=== PATIENT | male | born 1970 | race African-American/Black ===

== ENCOUNTER 2020-08-06 20:49 | Emergency (ER) | payer OTHER ==
[2020-08-06 21:11] VITALS: BMI 27.1
[2020-08-06] MEDS ORDERED: ACETAMINOPHEN 500 MG TABLET (FP) PO ONE (23:02)
[2020-08-06] MEDS ORDERED: ACETAMINOPHEN 325 MG TABLET (FP) ONE (23:11)
[2020-08-06 23:27] LABS: BASO % 0.7 % (0-2.0); EOS % 1.7 % (0-4.5); HEMATOCRIT 42.2 % (35.4-49); HEMOGLOBIN 14.4 GM/dL (11.7-16.9); LYMPH % 19.5 % (8-40); MCH 32.2 pg (25.7-33.7); MCHC 34.1 g/dl (32.0-35.9); MEAN CELL VOLUME 94.4 fl (80-96); MEAN PLT VOLUME 9.3 fl (7.5-11.1); MONO % 8.3 % (3.8-10.2); NEUT % 69.8 % (42.8-82.8); PLATELET COUNT 193 K/MM3 (134-434); RBC 4.47 M/mm3 (4.00-5.60); RDW 13.4 % (11.9-15.9); WHITE BLOOD COUNT 5.5 K/mm3 (4.0-10.0)
[2020-08-06 23:34] LABS: INR 1.01 (0.83-1.09); PROTHROMBIN TIME (PATIENT) 12.2 SEC (9.7-13.0)
[2020-08-06 23:41] LABS: CHLORIDE 108 mmol/L (98-107); SODIUM 140 mmol/L (136-145)
[2020-08-06 23:42] LABS: CALCIUM 9.7 mg/dL (8.5-10.1)
[2020-08-06 23:43] LABS: ALBUMIN 3.8 g/dl (3.4-5.0); ANION GAP 4 MMOL/L (8-16); BLOOD UREA NITROGEN 18.8 mg/dL (7-18); CO2 28 mmol/L (21-32); GLUCOSE,RANDOM 95 mg/dL (74-106)
[2020-08-06 23:46] LABS: CREATININE 1.6 mg/dL (0.55-1.3); SGOT/AST 20 U/L (15-37); SGPT/ALT 29 U/L (13-61)
[2020-08-06 23:48] LABS: BILIRUBIN,TOTAL 0.5 mg/dL (0.2-1); TOT PROT 7.4 g/dl (6.4-8.2)
[2020-08-06 23:49] LABS: ALK PHOS 75 U/L (45-117)
[2020-08-06] MEDS ORDERED: METHOCARBAMOL 500 MG TABLET PO ONE (23:50)
[2020-08-06] MEDS ORDERED: SODIUM CHLORIDE 0.9% 500 ML INFUS.BAG IV ONE (23:53)
[2020-08-06] MEDS ORDERED: DEXAMETHASONE LIQUID 0.5 MG/5 ML PO ONE (23:56)
[2020-08-07] MEDS ORDERED: DEXAMETHASONE SOD PHOSPHATE 10 MG/1 ML VIAL ONE
[2020-08-07] MEDS ORDERED: METHOCARBAMOL 500 MG TABLET ONE
[2020-08-07] MEDS ORDERED: KETOROLAC TROMETHAMINE 30 MG/1 ML VIAL IVPUSH ONE (01:00)
[2020-08-07] MEDS ORDERED: KETOROLAC TROMETHAMINE 15 MG/ML VIAL ONE (01:00)
[2020-08-07] MEDS ORDERED: morphine CARPU-JECT 2 MG/1 ML DISP.SYRIN IVPUSH ONE (01:04)
[2020-08-07 01:32] LABS: PH,URINE 5.5 (5.0-8.0); URINE APPEARANCE CLEAR; URINE BILIRUBIN NEGATIVE (NEGATIVE); URINE COLOR YELLOW; URINE GLUCOSE (UA) NEGATIVE (NEGATIVE); URINE KETONE NEGATIVE (NEGATIVE); URINE LEUK ESTERASE NEGATIVE (NEGATIVE); URINE NITRITE NEGATIVE (NEGATIVE); URINE PROTEIN NEGATIVE (NEGATIVE); URINE UROBILINOGEN 0.2 mg/dL (0.2-1.0)
[2020-08-07 01:57] LABS: CALCIUM 8.6 mg/dL (8.5-10.1)
[2020-08-07 01:58] LABS: BLOOD UREA NITROGEN 19.4 mg/dL (7-18)
[2020-08-07 02:01] LABS: CREATININE 1.4 mg/dL (0.55-1.3)
[2020-08-07] MEDS ORDERED: SODIUM CHLORIDE 1,000 ML IV STA (02:08)
[2020-08-07] MEDS ORDERED: SODIUM CHLORIDE 0.45% 500 ML IV SCH (02:15)
[2020-08-07 03:49] VITALS: BP 145/85; PULSE 66; TEMP 98.4
== END 2020-08-07 03:56 | disposition left against medical advice (07) ==
LOC: JER 20:49
PROC: 3E0333Z Introduction of Anti-inflammatory into Peripheral Vein, Percutaneous Approach (ICD-10-PCS; principal; 2020-08-06)
PROC: 3E033NZ Introduction of Analgesics, Hypnotics, Sedatives into Peripheral Vein, Percutaneous Approach (ICD-10-PCS; 2020-08-06)
PROC: 3E0337Z Introduction of Electrolytic and Water Balance Substance into Peripheral Vein, Percutaneous Approach (ICD-10-PCS; 2020-08-06)
DX: R06.02 Shortness of breath (principal); M54.6 Pain in thoracic spine
CPT/HCPCS: 36415; 71046-TC-FY; 71275-TC; 80048; 80053; 81003; 84484; 85025; 85379; 85610; 85730; 87086; 93005; 93010; 99285-25; C9803; U0003; U0005

== ENCOUNTER 2020-08-08 14:45 | Emergency (ER) | payer OTHER ==
[2020-08-08 15:00] VITALS: BMI 27.1
[2020-08-08] MEDS ORDERED: SODIUM CHLORIDE 1,000 ML IV STA ×2 (15:32→16:33)
[2020-08-08 16:21] LABS: CHLORIDE 110 mmol/L (98-107); SODIUM 142 mmol/L (136-145)
[2020-08-08 16:23] LABS: CALCIUM 9.2 mg/dL (8.5-10.1)
[2020-08-08 16:24] LABS: ALBUMIN 3.5 g/dl (3.4-5.0); ANION GAP 1 MMOL/L (8-16); BLOOD UREA NITROGEN 12.6 mg/dL (7-18); CO2 31 mmol/L (21-32); GLUCOSE,RANDOM 83 mg/dL (74-106)
[2020-08-08 16:27] LABS: CREATININE 1.4 mg/dL (0.55-1.3); SGOT/AST 23 U/L (15-37); SGPT/ALT 29 U/L (13-61)
[2020-08-08 16:28] LABS: BILIRUBIN,TOTAL 0.3 mg/dL (0.2-1); TOT PROT 6.8 g/dl (6.4-8.2)
[2020-08-08 16:30] LABS: ALK PHOS 63 U/L (45-117)
[2020-08-08] MEDS ORDERED: APIXABAN 5 MG TABLET PO ONE (19:35)
[2020-08-08 19:43] LABS: N-TERMINAL BNP 110.3 pg/ml (5-125)
[2020-08-08] MEDS ORDERED: APIXABAN 5 MG TABLET ONE (20:17)
[2020-08-08 20:38] VITALS: BP 146/82; PULSE 50; TEMP 98.2
== END 2020-08-08 20:45 | disposition left against medical advice (07) ==
LOC: JER 14:45
PROC: 3E0337Z Introduction of Electrolytic and Water Balance Substance into Peripheral Vein, Percutaneous Approach (ICD-10-PCS; principal; 2020-08-08)
PROC: 3E0337Z Introduction of Electrolytic and Water Balance Substance into Peripheral Vein, Percutaneous Approach (ICD-10-PCS; 2020-08-08)
DX: I26.94 Multiple subsegmental thrombotic pulmonary emboli without acute cor pulmonale (principal)
CPT/HCPCS: 36415; 71275-TC; 80053; 82550; 82553; 83880; 84484; 93970-TC; 99285-25; Q9967

== ENCOUNTER 2020-08-08 22:58 | Inpatient (IN) | payer OTHER ==
[2020-08-09] MEDS ORDERED: HEPARIN - 25,000 UNIT in SODIUM CHLORIDE 495 ML IV SCH (00:15)
[2020-08-09] MEDS ORDERED: HEPARIN INFUSION - 25,000 UNITS/500 ML INFUS.BAG IVPB ONE (00:42)
[2020-08-09 02:39] LABS: BASO % 0.6 % (0-2.0); EOS % 1.5 % (0-4.5); HEMATOCRIT 37.5 % (35.4-49); HEMOGLOBIN 12.7 GM/dL (11.7-16.9); LYMPH % 23.8 % (8-40); MCH 31.8 pg (25.7-33.7); MCHC 33.8 g/dl (32.0-35.9); MEAN CELL VOLUME 94.1 fl (80-96); MEAN PLT VOLUME 9.3 fl (7.5-11.1); MONO % 8.3 % (3.8-10.2); NEUT % 65.8 % (42.8-82.8); PLATELET COUNT 183 K/MM3 (134-434); RBC 3.99 M/mm3 (4.00-5.60); RDW 12.8 % (11.9-15.9); WHITE BLOOD COUNT 5.7 K/mm3 (4.0-10.0)
[2020-08-09] MEDS ORDERED: HEPARIN NA (PORCINE) 5,000 UNITS/ML 1ML VIAL IVPUSH PRN ×2 (03:26)
[2020-08-09] MEDS: HEPARIN - 25,000 UNIT in SODIUM CHLORIDE 495 ML IV SCH (03:37)
[2020-08-09 07:21] LABS: HEMATOCRIT 38.2 % (35.4-49); HEMOGLOBIN 13.1 GM/dL (11.7-16.9); MCH 32.5 pg (25.7-33.7); MCHC 34.3 g/dl (32.0-35.9); MEAN CELL VOLUME 94.7 fl (80-96); MEAN PLT VOLUME 9.8 fl (7.5-11.1); PLATELET COUNT 187 K/MM3 (134-434); RBC 4.03 M/mm3 (4.00-5.60); RDW 12.7 % (11.9-15.9); WHITE BLOOD COUNT 4.8 K/mm3 (4.0-10.0)
[2020-08-09 07:48] LABS: MAGNESIUM 1.9 mg/dL (1.8-2.4)
[2020-08-09 07:51] LABS: PHOSPHOROUS 4.4 mg/dL (2.5-4.9)
[2020-08-09] MEDS ORDERED: ACETAMINOPHEN 325 MG TABLET (FP) ONE (15:26)
[2020-08-10 00:26] VITALS: BMI 29.0
[2020-08-10 07:31] LABS: BLOOD UREA NITROGEN 9.8 mg/dL (7-18)
[2020-08-10 07:32] LABS: CALCIUM 8.4 mg/dL (8.5-10.1)
[2020-08-10 07:35] LABS: CREATININE 1.2 mg/dL (0.55-1.3)
[2020-08-10 07:42] LABS: URINE APPEARANCE CLEAR; URINE BILIRUBIN NEGATIVE (NEGATIVE); URINE COLOR YELLOW; URINE GLUCOSE (UA) NEGATIVE (NEGATIVE); URINE KETONE NEGATIVE (NEGATIVE); URINE LEUK ESTERASE NEGATIVE (NEGATIVE); URINE NITRITE NEGATIVE (NEGATIVE); URINE PROTEIN NEGATIVE (NEGATIVE); URINE UROBILINOGEN 0.2 mg/dL (0.2-1.0)
[2020-08-10] MEDS: HEPARIN - 25,000 UNIT in SODIUM CHLORIDE 495 ML IV SCH (10:26)
[2020-08-10 11:57] LABS: HEMATOCRIT 39.1 % (35.4-49); HEMOGLOBIN 13.4 GM/dL (11.7-16.9); MCH 31.9 pg (25.7-33.7); MCHC 34.2 g/dl (32.0-35.9); MEAN CELL VOLUME 93.2 fl (80-96); MEAN PLT VOLUME 10.4 fl (7.5-11.1); PLATELET COUNT 227 K/MM3 (134-434); RBC 4.19 M/mm3 (4.00-5.60); RDW 13.1 % (11.9-15.9); WHITE BLOOD COUNT 4.9 K/mm3 (4.0-10.0)
[2020-08-10 17:01] VITALS: BP 133/78; PULSE 66; TEMP 98.4
[2020-08-14 10:07] LABS: DRVVT - 42.3 sec (0.0-47.0); HEXAGONAL PHASE PHOSPHOLIPID 0 sec (0-11)
== END 2020-08-10 16:00 | disposition home or self-care (01) | DRG 134 ==
LOC: JER 22:58 → JERBED 08-09 01:34 → J4W 08-09 22:53
PROVIDERS: ADMIT Internal Medicine; ATTEND Internal Medicine
DX: I26.99 Other pulmonary embolism without acute cor pulmonale (principal); R06.02 Shortness of breath; N18.9 Chronic kidney disease, unspecified
CPT/HCPCS: 36415; 71046-TC-FY; 71275-TC; 76775-TC; 80048; 80053; 81003; 81240; 81241; 82436; 82570; 83735; 84100; 84133; 84300; 84484; 85025; 85027; 85379; 85610; 85613; 85730; 85732; 87086; 93005; 93010; 93306-TC; 94761; 99285-25; C9803; J1644; U0003; U0005